=== PATIENT | male | born 1970 | race Caucasian/White ===

== ENCOUNTER → 2023-09-30 07:57 | Outpatient (REF) | payer OTHER, SELFPAY | LOC: RAD 07:57 | PROVIDERS: ATTENDING PHYSICIAN Family Medicine | DX: M79.672 Pain in left foot (principal); L65.9 Nonscarring hair loss, unspecified; G89.29 Other chronic pain; M54.41 Lumbago with sciatica, right side | CPT/HCPCS: 73610; 73630; 93922 ==

== ENCOUNTER 2024-08-29 05:42 | Emergency (ER) | payer OTHER, SELFPAY ==
[2024-08-29] VITALS (7 sets, daily range): BP systolic 89–128; BP diastolic 60–87; BMI 32.0
[2024-08-29 06:06] LABS: Hematocrit 43.6 % (39.0-52.0); Hemoglobin 14.8 g/dL (13.0-18.0); Mean Corp Hgb Conc. 33.9 g/dL (33.0-37.0); Mean Corpuscular Volume 83.0 fL (80.0-94.0); Nucleated Red Blood Cells % 0 % (-); Platelet Count 156 10^3/uL (130-400); Red Cell Dist. Width 13.1 % (11.5-14.5)
--- NOTE | 2024-08-29 06:24 | ED.GENMED ---
History of Present Illness
General
Chief Complaint: Chest Pain
Time Seen by Provider: 08/29/24 06:09
History of Present Illness
History of Present Illness:
53-year-old male without significant past medical history presenting to the emergency department for substernal chest pain. Patient reports he was on vacation about a week ago and modification did have an episode of substernal chest pain with some
shortness of breath. He thought maybe it was secondary to some indigestion, had also been working overnight shifts and did not feel generally well. Symptoms went away, and when he returned from vacation, he followed up with his primary care doctor
who completed an EKG, started on aspirin, and follow-up appointment scheduled with cardiology on September 14. This morning he woke up at his usual time and started to have more severe substernal chest pain. Denies exertional component to symptoms.
Denies any known cardiac issues and denies significant cardiac family history. Patient had his drive him to the hospital and and route felt that the pain got more severe so they pulled over and called the ambulance. The medics gave aspirin
and 1 nitro and patient's pain has improved. Denies fever cough. Denies abdominal pain. Denies additional medical complaints
Past History
Past History
ED Past Medical History: Other (anxiety)
ED Past Surgical History: None
Social History
Tobacco: Smoker
Alcohol: Occasional
Drug: None
Living: with family
Employment: Employed
Family History
Family History: Negative Diabetes
Phy Exam
Physical Exam
Physical Exam:
General: Well-appearing, no clinical signs of dehydration, nontoxic and in no acute distress
HEENT: protecting airway
Neck: appears supple
CV: Normal heart rate, regular rhythm
Resp: No accessory muscle use, no increased work of breathing, lungs clear to auscultation bilaterally
Abd: Soft and non-distended, no tenderness to palpation
Extremities: No deformities, no swelling
Neuro: alert, no focal neurologic deficit
: deferred
Rectal: deferred
Psych: Normal affect
Skin: Intact
Scores
Heart Score for Chest Pain Patients
STEMI patient?: No
History: Moderately Suspicious
ECG: Normal
Age: >45 - <65 years
Risk Factors: 1 or 2 Risk Factors
Troponin: </= Normal Limit
Heart Score for Chest Pain Patients: 3
Heart Score Risk: 2.5% MACE over next 6 weeks
Course
Orders/Labs/Results
Orders:
Orders
08/29/24 05:44
Electrocardiogram (*1) Urgent
Reason for Study: Chest Pain
Cardiac Monitoring- Treatment ONCE
EKG- Treatment ONCE
IV Insert/Care/Rem.- Treatment PRN
O2 Therapy [RESP] Urgent
Titrate/Wean O2 to maintain O2 sat greater than (%): 90
Special Instructions: Maintain sats >/=90%
Pulse Ox/spot Check [RESP] Urgent
Quantity: 1
Special Instructions: ON ROOM AIR
08/29/24 05:56
Complete Blood Count/With Diff Urgent
Comprehensive Metabolic Panel Urgent
Troponin I Urgent
08/29/24 06:23
CR Chest - 2 Views Urgent
Comment:
Reason For Exam: chest pain
08/29/24 06:54
EKG- Treatment ONCE
08/29/24 08:50
Electrocardiogram (*1) Urgent
Reason for Study: Chest Pain
08/29/24 09:00
Troponin I Urgent
Abnormal Lab Results
08/29/24
05:56
WBC 3.8 L 10^3/uL
(4.8-10.8)
MPV 10.9 H fL
(7.4-10.4)
Chloride 110 H mmol/L
(98-107)
Glucose 128 H mg/dl
(70-99)
08/29/24 05:56
08/29/24 05:56
Vital Signs
Initial and Last Documented VS:
Initial Vital Signs
Temp Pulse Resp Pulse Ox
97.5 F 68 20 96
08/29/24 05:47 08/29/24 05:47 08/29/24 05:47 08/29/24 05:47
Last Documented Vital Signs
Temp Pulse Resp BP Pulse Ox
97.5 F 61 15 128/87 97
08/29/24 05:47 08/29/24 10:00 08/29/24 10:00 08/29/24 10:00 08/29/24 09:00
MDM/Problems Addressed
MDM/Problems Addressed:
53-year-old male presenting to the emergency department with substernal chest pain. Vital signs on arrival are normal.
On exam patient is resting comfortably, no acute distress or discomfort. Patient notes that his pain has improved upon arrival after 1 nitro. Slightly concerning story for ACS, however EKG obtained on arrival without acute evidence of ischemia.
Patient notes an episode about a week ago. Concern for possible unstable angina. Plan for laboratory analysis including troponin. Will also obtain chest x-ray imaging. Patient otherwise afebrile, nontoxic without concern for infectious source.
Without any present respiratory symptoms, no increased work of breathing, no PE risk factors. Blood pressure within normal limits, without concern for any aortic catastrophe. Will continue to closely monitor.
08:00 - Troponin undetectable. Plan for repeat troponin and EKG. Patient low risk by heart score at this time
10:00 - Repeat troponin negative. EKG remains unchanged. Feel stable for discharge with outpatient cardiology follow-up. Return precautions discussed and patient verbalized under
*Pulse Oximetry
SaO2: 97
Oxygen Mode of Delivery: Room air
Patient hypoxic: no
*EKG
Interpreted by ED Provider?: Yes
EKG Intrepretation Date: 08/29/24
EKG Intrepretation Time: 06:32
Interpretation: normal
Comparison EKG: no changes (7/13/18)
Heart Rate: 61
Rate: normal
Rhythm: sinus
[place]: normal axis
Interval: normal interval
QRS Pattern: normal QRS
Ischemia: no ischemia
*Critical Care Note
Total Time (30-74mins, 75-104mins- exclusive of procedures): Not Applicable
ED Attending Note
-
Portions of this chart may have been created with voice recognition software.� Occasional wrong word or��sound alike� substitutions may have occurred due to the inherent limitations of voice recognition software.
Discharge Plan
Departure
Patient with high blood pressure during this ER visit?: No
Condition: Good
Discharge Problem:
Chest pain
Instructions: Chest pain - Discharge instructions
Prescriptions:
No Action
omeprazole
1 tab PO DAILY
Patient Comments:
Pt does not know mg
Referrals:
Cassius Haynes, DO [Active, Cardiology]
Activity Restrictions/Additional Instructions:
You were seen in the emergency department for chest pain
You were found to have reassuring laboratory analysis, chest x-ray, EKG. We recommend that you follow-up with cardiology.
Please follow-up closely with your primary care physician.
Return to the emergency department for any worsening of your symptoms, or any development of chest pain, difficulty breathing, abdominal pain with persistent vomiting and inability to tolerate food or liquid by mouth (concern for dehydration),
weakness, headache or confusion, fever greater than 100.4, or any additional symptoms that are concerning to you.
Thank you for choosing [facility].
Interventions
Interventions:
*Risk Screen - Suicide Last Done: 08/29/24 05:47
*General Assessment Last Done: 08/29/24 05:47
*Neglect/Abuse Screening Last Done: 08/29/24 05:47
*ED- Fall Risk Assessment Last Done: 08/29/24 05:47
*ED COVID-19 Vaccine History Last Done: 08/29/24 05:47
ED- Cardiac Assessment Last Done: 08/29/24 05:47
Discharge Date and Time
Print Language: M[place]OCC[place]
[2024-08-29 06:31] LABS: ALT (SGPT) 45 U/L (0-50); AST (SGOT) 29 U/L (17-59); Albumin 4.2 g/dl (3.5-5.0); Alkaline Phosphatase 63 U/L (38-126); Blood Urea Nitrogen 15 mg/dl (9-20); Calcium 9.0 mg/dl (8.4-10.2); Carbon Dioxide 24 mmol/L (22-30); Chloride 110 mmol/L (98-107); Estimated Creatinine Clearance 96 ml/min; Glucose 128 mg/dl (70-99); Potassium 4.2 mmol/L (3.5-5.1); Sodium 141 mmol/L (135-145); Total Protein 7.3 g/dl (6.3-8.2); eGFR > 60.00
[2024-08-29 06:44] LABS: Troponin I < 0.012 ng/ml
[2024-08-29 09:32] LABS: Troponin I < 0.012 ng/ml
== END 2024-08-29 10:36 | disposition home or self-care (01) ==
LOC: EMR 05:42
PROVIDERS: Emergency Medicine; EMERGENCY PHYSICIAN Student in an Organized Health Care Education/Training Program; FAMILY PHYSICIAN Family Medicine
DX: R07.89 Other chest pain (principal); F17.200 Nicotine dependence, unspecified, uncomplicated
CPT/HCPCS: 99285; 71046; 80053; 84484; 85025; 93005

== ENCOUNTER → 2024-09-16 13:36 | Outpatient (REF) | payer OTHER, SELFPAY | LOC: HWRCS 13:36 | PROVIDERS: ATTENDING PHYSICIAN Nuclear Medicine Nuclear Cardiology; FAMILY PHYSICIAN Family Medicine | DX: R07.89 Other chest pain (principal); Z82.49 Family history of ischemic heart disease and other diseases of the circulatory system; E78.5 Hyperlipidemia, unspecified; R73.01 Impaired fasting glucose | CPT/HCPCS: 93306 ==

== ENCOUNTER → 2024-09-29 12:16 | Outpatient (REF) | payer OTHER, SELFPAY | LOC: HWRCS 12:16 | PROVIDERS: ATTENDING PHYSICIAN Nuclear Medicine Nuclear Cardiology; FAMILY PHYSICIAN Family Medicine | DX: R07.89 Other chest pain (principal); Z82.49 Family history of ischemic heart disease and other diseases of the circulatory system; E78.5 Hyperlipidemia, unspecified; R73.01 Impaired fasting glucose | CPT/HCPCS: 78452; 93017; A9500 ==